=== PATIENT | male | born 2000 | race Caucasian/White ===

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

== ENCOUNTER 2019-06-23 18:46 | Emergency (ER) | payer OTHER ==
--- NOTE | 2019-06-23 19:47 | ED Physician Documentation ---
PD HPI CHEST PAIN - Stated complaint Stated Complaint: TIGHT CHEST/HEART - Chief complaint Chief Complaint: Cardiac - History obtained from History obtained from: Patient - History of Present Illness Timing - onset: Other (Most of the day today he has had an intermittent sensation of very brief squeezing on the left side of the chest. It happens maybe once an hour. He never had this before. When it happens he feels a brief squeeze on the left side of the chest that releases and otherwise is asymptomatic with it. There is no chest pain. No trouble breathing. He had never had this before. No increased caffeine or stimulant use. No recent travel, no pedal edema or calf pain.) Review of Systems Constitutional: reports: Reviewed and negative Nose: reports: Reviewed and negative Cardiac: denies: Pedal edema, Calf pain Respiratory: denies: Dyspnea, Cough GI: denies: Abdominal Pain PD PAST MEDICAL HISTORY - Past Surgical History Past Surgical History: No - Present Medications Home Medications: Ambulatory Orders Medication Instructions Recorded Confirmed No Known Home Medications 03/06/18 03/06/18 - Allergies Allergies/Adverse Reactions: Allergies Allergy/AdvReac Type Severity Reaction Status Date / Time No Known Drug Allergies Allergy Verified 06/23/19 18:53 - Social History Does the pt smoke?: No Smoking Status: Never smoker Does the pt drink ETOH?: Yes Does the pt have substance abuse?: No - Immunizations Immunizations are current?: Yes PD ED PE NORMAL - Vitals Vital signs reviewed: Yes - General General: Alert and oriented X 3, No acute distress - HEENT HEENT: PERRL, EOMI - Neck Neck: Supple, no meningeal sign, No bony TTP - Cardiac Cardiac: RRR, No murmur - Respiratory Respiratory: No respiratory distress, Clear bilaterally - Abdomen Abdomen: Non tender - Extremities Extremities: No edema, No calf tenderness / cord - Neuro Neuro: Alert and oriented X 3, Normal speech Results - Vitals Vitals: Vital Signs - 24 hr 06/23/19 18:53 Temperature 36.9 C Heart Rate 64 Respiratory 15 Rate Blood Pressure 140/91 H O2 Saturation 100 Oxygen O2 Source Room air - EKG (time done) 1942 Rate: Rate (enter#) (65) Rhythm: NSR [place]: Normal Intervals: Normal IA QRS: Normal Ischemia: ST elevation c/w repol. No: ST elevation c/w ischemia, ST depression Computer interpretation: Agree with computer - Labs Labs: Laboratory Tests 06/23/19 06/23/19 19:55 19:55 WBC 7.3 RBC 5.87 Hgb 15.7 Hct 47.3 MCV 80.6 MCH 26.7 L MCHC 33.2 RDW 11.9 L Plt Count 224 MPV 10.4 Neut # (Auto) 4.0 Lymph # (Auto) 2.5 [place] # (Auto) 0.6 Eos # (Auto) 0.1 Baso # (Auto) 0.1 Absolute Nucleated RBC 0.00 Nucleated RBC % 0.0 Sodium 139 Potassium 4.0 Chloride 102 Carbon Dioxide 27 Anion Gap 10.0 BUN 24 H Creatinine 0.9 Estimated GFR (MDRD) 108 Glucose 87 Calcium 9.6 Magnesium 2.1 Total Bilirubin 1.4 H AST 26 ALT 27 Alkaline Phosphatase 71 Total Protein 8.6 H Albumin 5.1 Globulin 3.5 Albumin/Globulin Ratio 1.5 Lipase 33 PD MEDICAL DECISION MAKING - ED course ED course: This young man who presents with squeezing intermittent palpitations that sound like PVCs. They are very fleeting. He had no symptoms while in the department though. The remainder of his work-up was negative. Except for a slightly high BUN and he was advised to push fluids. Departure - Departure Disposition: 01 Home, Self Care Clinical Impression: Palpitations Condition: Good Record reviewed to determine appropriate education?: Yes Instructions: Heart Palpitations Comments: Given your description I suspect you have premature ventricular contractions. These are not dangerous. Return for new or worsening symptoms. If symptoms are persistent you can talk with your doctor about a Holter monitor. Drink plenty of fluids.
[2019-06-23 20:00] LABS: BASOPHILS # (AUTO) 0.1 10^3/uL (0.0-0.1); BASOPHILS % (AUTO) 0.7 %; EOSINOPHILS # (AUTO) 0.1 10^3/uL (0.0-0.7); EOSINOPHILS % (AUTO) 0.8 %; HGB - HEMOGLOBIN 15.7 g/dL (14.0-18.0); LYMPHOCYTES # (AUTO) 2.5 10^3/uL (1.5-3.5); LYMPHOCYTES % (AUTO) 34.6 %; MEAN CORPUSCULAR HEMOGLOBIN 26.7 pg (27.0-31.0); MEAN CORPUSCULAR HGB CONC 33.2 g/dL (32.0-36.0); MEAN CORPUSCULAR VOLUME 80.6 fL (80.0-94.0); MEAN PLATELET VOLUME 10.4 fL (7.4-11.4); MONOCYTES # (AUTO) 0.6 10^3/uL (0.0-1.0); MONOCYTES % (AUTO) 8.3 %; NEUTROPHILS % (AUTO) 55.3 %; PLT - PLATELET COUNT 224 10^3/uL (130-450); RED BLOOD COUNT 5.87 10^6/uL (4.70-6.10); RED CELL DISTRIBUTION WIDTH 11.9 % (12.0-15.0); WHITE BLOOD COUNT 7.3 x10^3/uL (4.8-10.8)
[2019-06-23 20:13] LABS: ALBUMIN 5.1 g/dL (3.2-5.5); ALBUMIN/GLOBULIN RATIO 1.5 (1.0-2.2); BILIRUBIN,TOTAL 1.4 mg/dL (0.2-1.0); CALCIUM 9.6 mg/dL (8.5-10.3); CREATININE 0.9 mg/dL (0.6-1.2); MAGNESIUM 2.1 mg/dL (1.7-2.8); TOTAL PROTEIN 8.6 g/dL (6.7-8.2)
--- NOTE | 2019-06-23 20:16 | XRAY Report ---
Reason: chest pain Procedure Date: 06/23/2019 Accession Number: [id number] / [id number] Procedure: XR - Chest 1 View X-Ray CPT Code: 44117 FULL RESULT: EXAM: CHEST RADIOGRAPHY EXAM DATE: 06/23/2019 07:52 PM. CLINICAL HISTORY: Chest pain. COMPARISON: None. TECHNIQUE: 1 view. FINDINGS: Lungs/Pleura: No focal opacities evident. No pleural effusion. No pneumothorax. Mediastinum: Within exam limitations, the cardiomediastinal contour is normal. Other: None. IMPRESSION: Normal single view chest. [facility]
[2019-06-23 20:52] VITALS: BP 134/86
== END 2019-06-23 20:56 | disposition home or self-care (01) ==
LOC: ED 18:46
DX: R00.2 Palpitations (principal)
CPT/HCPCS: 36415; 71045; 80053; 83690; 83735; 85025; 93005; 99282; 99284